=== PATIENT | female | born 1965 | race Caucasian/White ===

== ENCOUNTER → 2016-07-21 | Day surgery (SDC) | payer MEDICARE ==
[~2016-07-21] VITALS: Ht 154.9 cm; Wt 74.4 kg
[~2016-07-21] MED LIST: ASPIR-LOW81 MG PO; ELAVIL 10 MG TA10 MG PO; IMITREX PO; INDERAL TAB 4040 MG PO; KLONOPIN TAB 00.5 MG PO; LAMICTAL100 MG PO; LISINOPRIL10 MG PO; LITHIUM CARBON300 M1 PO; LORTAB 5-325 M1 EACH PO; METANX CAPSULE1 EACH PO; PERCOCET 7.5-31 EACH PO; PROTONIX40 MG PO; RESTORIL15 MG PO; SIMVASTATIN20 MG PO; TRAMADOL PO; TRINTELLIX PO; XYZAL5 MG PO; ZANAFLEX4 M1 PO; ZOCOR20 MG PO
== END | disposition home or self-care (01) ==
LOC: OR 08:15
PROVIDERS: Orthopaedic Surgery
PROC: 0RBJ4ZZ Excision of Right Shoulder Joint, Percutaneous Endoscopic Approach (ICD-10-PCS; principal; 2016-07-21 14:45)
DX: M75.41 Impingement syndrome of right shoulder (principal); M75.51 Bursitis of right shoulder; I10 Essential (primary) hypertension; E78.5 Hyperlipidemia, unspecified; G89.29 Other chronic pain; Z85.3 Personal history of malignant neoplasm of breast; Z98.51 Tubal ligation status; Z90.710 Acquired absence of both cervix and uterus; Z90.49 Acquired absence of other specified parts of digestive tract; Z79.899 Other long term (current) drug therapy; Z87.19 Personal history of other diseases of the digestive system; Z86.010 Personal history of colon polyps; Z82.49 Family history of ischemic heart disease and other diseases of the circulatory system; Z13.820 Encounter for screening for osteoporosis; M85.88 Other specified disorders of bone density and structure, other site; Z78.0 Asymptomatic menopausal state
CPT/HCPCS: 36415; 77080; 80048; 85027; J0171; J0690; J1100; J2250; J2370; J2405; J2710; J2795; J3010; J7120

== ENCOUNTER → 2016-10-03 | Outpatient (CLI) | payer MEDICARE ==
[2016-10-03 13:53] LABS: HEMOGLOBIN 13.9 gm/dl (12.3-15.3); RED BLOOD COUNT 4.73 M/UL (4.00-5.10); WHITE BLOOD COUNT 7.6 K/UL (4.5-11.0)
[2016-10-03 14:14] LABS: BUN/CREATININE RATIO 18 (0-10)
== END ==
LOC: EMI 09-30 09:00 → MRI 12:59 → EMI 13:00
PROVIDERS: Nurse Practitioner Family
DX: G43.509 Persistent migraine aura without cerebral infarction, not intractable, without status migrainosus (principal); R13.10 Dysphagia, unspecified; E04.1 Nontoxic single thyroid nodule; E78.00 Pure hypercholesterolemia, unspecified; E55.9 Vitamin D deficiency, unspecified; I10 Essential (primary) hypertension; R53.83 Other fatigue; R11.2 Nausea with vomiting, unspecified; M54.5 Low back pain; R20.2 Paresthesia of skin; K59.00 Constipation, unspecified
CPT/HCPCS: 36415; 70553; 76536; 80053; 80061; 82150; 82607; 83690; 84439; 84443; 85025; A9577